=== PATIENT | female | born 1965 | race Hispanic/Latino ===

== ENCOUNTER 2017-12-28 07:57 | Day surgery (SDC) | payer MEDICARE, OTHER ==
[2017-12-20 13:23] VITALS: BMI 31.9
[2017-12-28] MEDS ORDERED: Strong Iodine Topical Sol. 5%-10% ONE (09:32)
[2017-12-28] MEDS ORDERED: Succinylcholine 200 mg/10 ml Inj IV ONE (09:47)
[2017-12-28] MEDS ORDERED: Etomidate 20 mg/10ml Inj IV ONE (09:47)
[2017-12-28] MEDS ORDERED: Phenylephrine 10 mg/ml Inj ONE (09:50)
[2017-12-28] MEDS ORDERED: Midazolam 2 MG/2 ML VIAL ONE (10:19)
[2017-12-28] MEDS ORDERED: Propofol 10 mg/ml Inj (20 ML) ONE (10:45)
[2017-12-28] MEDS ORDERED: Flumazenil 0.1 mg/ml Inj (5ml) IVP ONE (10:54)
[2017-12-28] MEDS ORDERED: Sodium Chloride 0.9% 1,000 ML IV SCH (11:15)
[2017-12-28 12:06] VITALS: TEMP 97.6
[2017-12-28 12:56] VITALS: BP 110/73; PULSE 73; RESP 18; O2SAT 97
--- NOTE | 2017-12-28 22:37 | OP ---
PROCEDURE DATE: 12/28/2017 PREOPERATIVE DIAGNOSIS: Cervical dysplasia, possible high grade. POSTOPERATIVE DIAGNOSIS: Cervical dysplasia, possible high grade. PROCEDURE: LEEP cone biopsy and an endocervical curettage. SURGEON: Dr. Carter. TYPE OF ANESTHESIA: General endotracheal. ESTIMATED BLOOD LOSS: Minimal. DESCRIPTION OF PROCEDURE: After informed consent was obtained and signed by the patient, the patient was brought into the operating room. General endotracheal anesthesia was induced. The patient was prepped and draped in usual sterile fashion. The examination under anesthesia revealed a uterus that was top normal size, anteverted, both adnexa were felt to be negative. Weighted speculum was inserted into the vaginal vault. Anterior lip of the cervix was visualized and grasped with single-tooth tenaculum. Endocervical canal was visualized. The entire cervix was stained with Lugol solution. The area of abnormality noted was on the 2 o'clock position of the cervix, extending down towards the endocervical area. Using a semilunar LEEP, a LEEP cone biopsy was performed incorporating this entire lesion. Again, endocervical curettage was performed first and that specimen was sent to Pathology for examination. All specimens were then removed, and the edge of the cervix where the entire LEEP was performed was cauterized with monopolar cauterization. Hemostasis was excellent. Monsel solution was applied to the cervix. No bleeding was noted. The procedure was terminated. The patient was awakened and sent to the Recovery Room. Maulik Carter MD
== END 2017-12-28 13:43 | disposition home or self-care (01) ==
LOC: SDS 07:57
PROVIDERS: ATTEND Obstetrics & Gynecology Gynecology
DX: N87.1 Moderate cervical dysplasia (principal); N88.8 Other specified noninflammatory disorders of cervix uteri
CPT/HCPCS: 57522; 88305; 88307; J0330; J1885 ×2; J2001; J2250; J2370; J2405; J2704; J7040